=== PATIENT | male | born 1975 | race Caucasian/White ===

== ENCOUNTER → 2022-12-18 23:32 | Outpatient (CLI) | payer OTHER, SELFPAY ==
[2022-12-18 19:34] LABS: Chloride 91 mmol/L (98-107); Potassium 4.2 mmoL/L (3.5-5.1); Sodium 131 mmol/L (136-145)
[2022-12-18 19:36] LABS: Alanine Aminotransferase 27 U/L (12-78); Alkaline Phosphatase 96 U/L (38-126); Aspartate Amino Transferase 27 U/L (17-59); Bilirubin,Total 0.4 mg/dl (0.2-1.3); Blood Urea Nitrogen 27 mg/dl (9-20); Estimated Glomerular Filt Rate 65 ml/min (>60); GFR (African American) 79 ML/MIN (>60)
[2022-12-18 19:37] LABS: Albumin Level 4.5 g/dl (3.5-5.0); Albumin/Globulin Ratio 1.2 (1.1-1.8); Anion Gap 13.2 mEq/L (5-15); Calcium 9.7 mg/dl (8.4-10.2); Carbon Dioxide 31 mmol/L (22.0-30.0); Globulin 3.8 g/dL (1.3-3.2); Glucose 389 mg/dl (74-100); Total Protein,Serum 8.3 g/dl (6.3-8.2)
== END ==
PROVIDERS: PCP Nurse Practitioner; Visit Provider Nurse Practitioner
DX: E11.9 Type 2 diabetes mellitus without complications (principal); E78.5 Hyperlipidemia, unspecified; I10 Essential (primary) hypertension; Z79.84 Long term (current) use of oral hypoglycemic drugs
CPT/HCPCS: 80053

== ENCOUNTER → 2023-01-09 15:54 | Outpatient (CLI) | payer OTHER, SELFPAY ==
--- NOTE | 2023-01-09 15:55 | CA_ITS ---
APPROVED REPORT EXAM: Comprehensive 2D, Doppler, and color-flow Echocardiogram Banking Attorney: DASH Neal, RVS Ht: 5 ft 11 in Wt: 227lbs BSA: 2.23 BP: 150/78 mmHg Indications: CP, CAD-stents, HTN, HLD, DM, Edema, 2D Dimensions IVSd 0.95 cm LVEF (Visual) 49.20 % PWd 0.95 cm LA Volume 23.50 mL LVDd 5.01 cm LA Volume Index 10.30 mL/m2 (M/F) 16-34 LVDs 3.76 cm Aortic Root 2.64 cm Left Atrium 2.73 cm LVOT 1.89 cm (M/F) 1.5-2.5 M-Mode Dimensions LA Diam 2.76 cm (1.9-4.0) Ao Diam 3.26 cm (2.0-3.7) EPSs 0.84 cm TAPSE 2.10 (<1.7) LV Diastology E Decel Time 200.00 (160-240 msec) E/A Ratio 1.37 MED E' 8.70 (< 7 cm/sec) MED A' 11.80 cm/s E'/MED E' Ratio 7.20 (>14) LAT E' 10.50 (<10 cm/sec) LAT A' 11.20 cm/s E/LAT E' Ratio 5.96 (>14) Aortic Valve LVOT Max 107.00 (70-110 cm/s) LVOT VTI 21.22 cm AoV Peak Kenji. 140.00 (50-130 cm/s) AO Peak GR. 7.90 mmHg AO Mean GR. 4.20 (<5 mmHg) AO VTI 24.03 (18-25 cm) JAZ (VTI) 2.48 (2.5-4.5 cm2) Mitral Valve MV A Velocity 46.00 (40-130 cm/s) E/A Ratio 1.37 MV Decel. Time 200.00 (160-240 ms) Pulmonary Valve PV Peak Velocity 95.00 (50-150 cm/s) Tricuspid Valve TR P. Velocity 183.00 cm/s Left Ventricle Left atrium is mildly enlarged, left ventricle is normal size mild concentric left ventricular hypertrophy, estimated ejection fraction 55% with no regional wall motion abnormality, diastolic parameters are inconclusive. Right Ventricle Right atrium and right ventricle are normal size and contractility. Aortic Valve Aortic valve is minimally thickened and fibrosed there is no aortic stenosis or aortic insufficiency. Mitral Valve Mitral valve is grossly normal, there is trace mitral regurgitation. Tricuspid Valve Tricuspid grossly normal, there is trace tricuspid regurgitation, tricuspid regurgitation jet velocity is inadequate for calculation of the right ventricular systolic pressure. Pulmonic Valve Pulmonic valve is poorly visualized. Great Vessels Aortic root is normal size. Pericardium No significant pericardial effusion noted. Inferior vena cava is poorly visualized. Conclusion 1. Mildly enlarged left atrium, normal left ventricular size mild concentric left ventricular hypertrophy, estimated ejection fraction 55% with no regional wall motion abnormality, diastolic parameters are inconclusive. 2. Trace mitral and tricuspid regurgitation. 3. No significant pericardial effusion noted. 4. Inferior vena cava is poorly visualized. Electronically signed by : Pablo Higginbotham MD 01/09/2023 19:25:44
== END ==
PROVIDERS: PCP Nurse Practitioner; Visit Provider Physician Assistant
DX: R06.00 Dyspnea, unspecified (principal); R07.89 Other chest pain; I20.0 Unstable angina; E11.9 Type 2 diabetes mellitus without complications; E78.1 Pure hyperglyceridemia; E78.5 Hyperlipidemia, unspecified; I10 Essential (primary) hypertension; R60.9 Edema, unspecified; Z95.5 Presence of coronary angioplasty implant and graft; Z79.84 Long term (current) use of oral hypoglycemic drugs
CPT/HCPCS: 93306

== ENCOUNTER 2023-01-18 08:32 | Day surgery (SDC) | payer OTHER, SELFPAY ==
[2023-01-18] VITALS (12 sets, daily range): BP systolic 80–137; BP diastolic 47–106; PULSE 82–103; RESP 16–18; O2SAT 90–97; BMI 31.6
--- NOTE | 2023-01-18 07:09 | IR_ITS ---
APPROVED REPORT Patient Location: Outpatient Director Environmental: EREN Cordero RT (R) PROCEDURES Left heart catheterization Left ventriculogram Selective coronary angiogram Bilateral selective renal angiography INDICATION Coronary artery disease, Accelerated angina pectoris, Hypertension, Renal failure creatinine 1.5, Suspected renal artery stenosis, Suspect renovascular hypertension Informed consent was obtained prior to the procedure. COMPLICATIONS None Estimated Blood Loss: Less than 10 mls TECHNIQUE One percent lidocaine was used to anesthetize the right groin. The right femoral artery was accessed via the Seldinger technique. A 4-Armenian sheath was placed in the right femoral artery. The JL-4 and JR-4 catheter was also used to perform left heart catheterization left ventriculogram and selective coronary angiogram. At the end of the procedure the patient was transferred to the post-op holding area in stable condition for arterial sheath removal. ANGIOGRAPHIC RESULTS The left main artery Has ostial proximal 20% stenosis and a distal eccentric 30% stenosis The left anterior descending artery Has an ostial 60% stenosis followed by a proximal 70% stenosis immediately proximal to an LAD stent which is widely patent. Distal to the stent is a 50% myocardial bridge followed by an additional stent in the midportion which is widely patent with 30% stenosis proximal to the stent The circumflex artery Is a dominant vessel and has an ostial hazy 70% stenosis with an additional 90% stenosis and a first and second obtuse marginal artery The right coronary artery Is a dominant vessel and has proximal 40% stenoses with mid vessel eccentric 50 and 70% stenoses. A large posterior lateral branch has a proximal 80% stenosis while the posterior descending artery is proximally occluded and fills via [id number] collateral The SINCLAIR ventriculogram reveals Normal 60% The left ventricular end-diastolic pressure 20 mmHg Right renal artery singular normal Left renal artery singular normal IMPRESSION Severe three-vessel coronary disease as described above Normal ejection fraction Elevated LVEDP Normal renal arteries PLAN 1. I recommend bypass surgery. Patient has both ostial and proximal LAD disease as well as ostial circumflex artery disease. I do not recommend stent in the ostial circumflex artery as this would require bifurcating stenting of the left main artery. I believe patient would do well with bypass surgery 2. LDL less than 55 to be achieved with high intensity statin or other drugs such as Praluent 3. Tight control of diabetes. Patient referred to Dr. Jeffers. I spoke with Dr. Jeffers and he has agreed to see patient at either 9 AM or 1 PM tomorrow 4. Referral to [facility] bypass surgery 5. Aggressive risk factor modification 6. Increase metoprolol from 50 twice daily to 100 mg twice daily 7. Increase metformin from 500 twice daily to 1000 twice daily Electronically signed by : Van Clemons MD 01/18/2023 16:20:44
[2023-01-18 09:18] LABS: Chloride 84 mmol/L (98-107); Potassium 4.1 mmoL/L (3.5-5.1); Sodium 127 mmol/L (136-145)
[2023-01-18 09:20] LABS: Basophils # 0.2 K/mm3 (0-0.2); Basophils % 1.6 % (0.1-2.0); Blood Urea Nitrogen 32 mg/dl (9-20); Eosinophils # 0.1 K/mm3 (0.0-0.4); Eosinophils % 1.4 % (0.1-12.0); Hematocrit 51.3 % (42.0-52.0); Hemoglobin 17.2 g/dL (14.1-18.0); Lymphocytes # 2.5 K/mm3 (0.7-4.5); Lymphocytes % 25.9 % (10-50); Mean Corpuscular HGB Conc 33.6 g/dL (31.8-35.4); Mean Corpuscular Hemoglobin 28.9 pg (27.0-31.2); Mean Corpuscular Volume 86.1 fl (80-94); Mean Platelet Volume 8.7 fl (7.4-10.4); Monocytes # 0.6 K/mm3 (0.1-1.0); Monocytes % 6.5 % (1.7-9.3); Neutrophils # 6.2 K/mm3 (1.8-7.8); Neutrophils % 64.6 % (37.0-80.0); Platelet Count 325 K/mm3 (142-424); Red Blood Count 5.95 M/mm3 (4.60-6.20); Red Cell Distribution Width 13.9 % (11.5-17.5); White Blood Count 9.6 K/mm3 (4.8-10.8)
[2023-01-18 09:21] LABS: Anion Gap 20.1 mEq/L (5-15); Calcium 10.2 mg/dl (8.4-10.2); Carbon Dioxide 27 mmol/L (22.0-30.0); Creatinine Clearance Estimated 88 mL/min (50-200); Estimated Glomerular Filt Rate 50 ml/min (>60); GFR (African American) 60 ML/MIN (>60)
[2023-01-18 09:29] LABS: Glucose 437 mg/dl (74-100)
[2023-01-18 15:36] LABS: POC Glucose,Bedside 431 (70-110)
[2023-01-18 15:36] LABS: POC Glucose,Bedside 472 (70-110)
[2023-01-18 15:36] LABS: POC Glucose,Bedside 451 (70-110)
== END 2023-01-18 16:20 | disposition home or self-care (01) ==
PROVIDERS: PCP Nurse Practitioner; Visit Provider Internal Medicine
DX: I25.110 Atherosclerotic heart disease of native coronary artery with unstable angina pectoris (principal); E11.65 Type 2 diabetes mellitus with hyperglycemia; E78.1 Pure hyperglyceridemia; E78.5 Hyperlipidemia, unspecified; I10 Essential (primary) hypertension; R06.00 Dyspnea, unspecified; R07.89 Other chest pain; R60.9 Edema, unspecified; Z95.5 Presence of coronary angioplasty implant and graft; Z87.891 Personal history of nicotine dependence; Z79.84 Long term (current) use of oral hypoglycemic drugs; Z79.899 Other long term (current) drug therapy; I15.0 Renovascular hypertension; I70.1 Atherosclerosis of renal artery
CPT/HCPCS: 36252; 80048; 82962; 85025; 93458; 99152; C1725; C1769; J1644; Q9967

== ENCOUNTER → 2023-01-22 14:56 | Outpatient (CLI) | payer OTHER, SELFPAY ==
[2023-01-22 16:25] LABS: Basophils # 0.1 K/mm3 (0-0.2); Basophils % 1.1 % (0.1-2.0); Eosinophils # 0.1 K/mm3 (0.0-0.4); Eosinophils % 0.7 % (0.1-12.0); Hematocrit 50.5 % (42.0-52.0); Hemoglobin 16.8 g/dL (14.1-18.0); Lymphocytes # 2.2 K/mm3 (0.7-4.5); Mean Corpuscular HGB Conc 33.3 g/dL (31.8-35.4); Mean Corpuscular Hemoglobin 28.7 pg (27.0-31.2); Mean Corpuscular Volume 86.2 fl (80-94); Mean Platelet Volume 9.4 fl (7.4-10.4); Monocytes # 0.6 K/mm3 (0.1-1.0); Monocytes % 5.2 % (1.7-9.3); Neutrophils # 9.1 K/mm3 (1.8-7.8); Neutrophils % 75.1 % (37.0-80.0); Platelet Count 303 K/mm3 (142-424); Red Blood Count 5.85 M/mm3 (4.60-6.20); Red Cell Distribution Width 13.6 % (11.5-17.5); White Blood Count 12.1 K/mm3 (4.8-10.8)
[2023-01-22 17:28] LABS: Anion Gap 22.8 mEq/L (5-15); Blood Urea Nitrogen 42 mg/dl (9-20); Calcium 9.8 mg/dl (8.4-10.2); Carbon Dioxide 26 mmol/L (22.0-30.0); Chloride 84 mmol/L (98-107); Estimated Glomerular Filt Rate 46 ml/min (>60); GFR (African American) 56 ML/MIN (>60); Glucose 294 mg/dl (74-100); Magnesium 2.2 mg/dl (1.6-2.3); Potassium 4.8 mmoL/L (3.5-5.1); Sodium 128 mmol/L (136-145)
== END ==
PROVIDERS: PCP Nurse Practitioner; Visit Provider Physician Assistant
DX: I10 Essential (primary) hypertension (principal); E78.5 Hyperlipidemia, unspecified
CPT/HCPCS: 36415; 80048; 83735; 85025

== ENCOUNTER → 2023-05-17 10:51 | Outpatient (CLI) | payer OTHER, SELFPAY | PROVIDERS: Visit Provider Internal Medicine | DX: I20.8 Other forms of angina pectoris (principal); R00.0 Tachycardia, unspecified; R00.2 Palpitations; I10 Essential (primary) hypertension; E11.9 Type 2 diabetes mellitus without complications; E78.5 Hyperlipidemia, unspecified; R60.9 Edema, unspecified; Z95.1 Presence of aortocoronary bypass graft; Z95.5 Presence of coronary angioplasty implant and graft; Z79.4 Long term (current) use of insulin | CPT/HCPCS: 93270 ==

== ENCOUNTER → 2023-06-06 07:49 | Outpatient (CLI) | payer OTHER, SELFPAY ==
--- NOTE | 2023-06-06 07:49 | NM_ITS ---
APPROVED REPORT Exam: Nuclear Stress Test Indication: palpitations..a-fib Patient Location: Outpatient Stress Tech: Barbara Thomas LA Tech:Radha McculloughEREN RT(R)(N) Ht: 5 ft 11 in Wt: 215 lbs HR: 84 bpm BP: 116/84 mmHg BSA: 2.17 m2 Rhythm: NSR TID: 1.37 BMI: 29.9 History: palpitations..a-fib Procedure: Patient received 0.4 mg of intravenous Lexiscan, resting heart rate 84 bpm, resting blood pressure 116/84 mmHg, with Lexiscan maximum heart rate achieved was 112 bpm which is 85 % of the maximum predicted heart rate and blood pressure was 144/88 mmHg. With Lexiscan, patient denied any complaint of chest pain. The pt was not able to lay on his abdomen for prone images Cardiac Stress and Resting SPECT Images: Cardiac Stress and Resting SPECT images were obtained using technetium 99m Myoview 30.5 mCi stress and 10.27 mCi at rest. The patient could not lie on his abdomen. Therefore, prone stress imaging could not be obtained. This may affect the diagnostic interpretation of the study findings. Resting and stress imaging in supine position demonstrates a large-sized, moderate, reversible perfusion defect in the anterior, anterolateral, and lateral LV lopez. There is also a large-sized, moderate, partially reversible perfusion defect in the inferior wall, reversibility is noted in the mid to distal segment. There is also increased transient ischemic dilatation ratio (TID 1.37), suggestive of possible multivessel disease or balanced ischemia. Gated imaging demonstrates mild reduction in global LV systolic function. There is moderate hypokinesis in the anterior, anterolateral, and inferior LV lopez. LVEF is calculated at 43%. Conclusion: The patient could not lie on his abdomen. Therefore, prone stress imaging could not be obtained. This may affect the diagnostic interpretation of the study findings. 1) Large-sized, moderate, reversible perfusion defect in the anterior, anterolateral, and lateral LV lopez. 2) Large-sized, moderate, partially reversible perfusion defect in the inferior wall. Reversibility is noted in the mid to distal segment. There is also increased transient ischemic dilatation ratio (TID 1.37), suggestive of possible multivessel disease or balanced ischemia. Gated imaging demonstrates mild reduction in global LV systolic function. There is moderate hypokinesis in the anterior, anterolateral, and inferior LV lopez. LVEF is calculated at 43%. Electronically signed by : Merced Ashton, 06/09/2023 15:18:54
--- NOTE | 2023-06-06 09:36 | CA_ITS ---
APPROVED REPORT EXAM: Comprehensive 2D, Doppler, and color-flow Echocardiogram Vacuum Worker: Erika Galarza RVT Ht: 6 ft 0 in Wt: 214lbs BSA: 2.19 BP: 124/86 mmHg Indications: EDEMA,CAD,CABG(03/13),HTN,PALPS,EX SMOKER,DM,HLD 2D Dimensions LVOT 2.09 cm (M/F) 1.5-2.5 LA Volume 33.60 mL LA Volume Index 15.34 mL/m2 (M/F) 16-34 M-Mode Dimensions RVDd 2.00 cm (0.9-2.6) LA Diam 3.37 cm (1.9-4.0) LVDd 5.35 cm (3.5-5.7) Ao Diam 3.09 cm (2.0-3.7) LVDs 3.67 cm (3.5-5.7) IVSd 0.43 cm (0.6-1.1) PWd 0.64 cm (0.6-1.1) EF (Teich) 58.80% FS 31.40% EDV (Teich) 138.30 mL TAPSE 1.36 (<1.7) ESV (Teich) 57.00 mL LV Diastology E Decel Time 163.00 (160-240 msec) E/A Ratio 1.3 MED E' 5.70 (< 7 cm/sec) E'/MED E' Ratio 13.11 (>14) LAT E' 14.50 (<10 cm/sec) E/LAT E' Ratio 5.15 (>14) Aortic Valve AO Peak GR. 3.40 mmHg Mitral Valve MV E Max Kenji. 75.00 (40-130 cm/s) MV A Velocity 60.00 (40-130 cm/s) E/A Ratio 1.24 MV Decel. Time 163.00 (160-240 ms) MV PHT 48.00 ms Pulmonary Valve PV Peak Velocity 87.00 (50-150 cm/s) Tricuspid Valve TR P. Velocity 197.00 cm/s RAP Estimate 10.00 mmHg RVSP 25.50 mmHg Left Ventricle The left ventricle is normal size. The left ventricular systolic function is normal. The left ventricular ejection fraction is within the low normal range. There is normal left ventricular wall thickness. There is normal LV segmental wall motion. There is mild hypokinesis of the mid to distal septal and anteroseptal LV lopez. The left ventricular diastolic function is normal. LVEF is 50%. Right Ventricle The right ventricle is normal size. The right ventricular systolic function is normal. Atria The left atrium size is normal. The right atrium size is normal. Aortic Valve The aortic valve opens well. There is no aortic valvular stenosis. No aortic regurgitation is present. Mitral Valve The mitral valve is normal in structure. No evidence of mitral valve stenosis. Mild mitral regurgitation. Tricuspid Valve The tricuspid valve leaflets are thin and pliable. Trace tricuspid regurgitation. RVSP is normal. Pulmonic Valve The pulmonary valve is normal in structure. Trace pulmonic regurgitation. Great Vessels The aortic root is normal in size. The ascending aorta is normal in size. IVC is normal in size and collapses >50% with inspiration. Pericardium There is no pericardial effusion. Other Information Study Quality: Adequate Conclusion Low-normal LV systolic function. Normal RV size and function. Hypokinesis of the mid to distal septal and anteroseptal LV lopez. No significant valvular disease. Electronically signed by : Merced Ashton, 06/06/2023 13:40:44
--- NOTE | 2023-06-06 10:27 | CA_ITS ---
APPROVED REPORT Exam: Pharmacologic Technologist: Barbara Thomas Ht: 6 ft 0 in Wt: 214 lbs BSA: 2.19 m2 HR: 83 bpm BP: 116/84 mmHg Rhythm: NSR Indications: Edema, Abnormal EKG Medical History Medications: Isosorbide,,,,, Aspirin,,,,, Metformin,,,,, Losartan,,,,, Allopurinol,,,,, Atorvastatin,,,,, Farxiga,,,,, Diclofenac,,,,, BisOPROLOL,,,,, LanTUS,,,,, Humalog,,,,, Methocarbamol,,,,, Stress Test Details Test: LEXISCAN HR Resting HR: 84 bpm Max Heart Rate (APMHR): 172 bpm Max HR Achieved: 112 bpm Target HR (85% APMHR): 146 bpm % of APMHR: 65 Recovery HR: 97 bpm BP Resting BP: 116.0/84.0 mmHg Max BP: 144.0/88.0 mmHg Recovery BP: 129.0/82.0 mmHg ECG Resting ECG: Normal sinus rhythm, LPFB, cannot rule out old inferolateral VT. Stress ECG: No change Arrhythmia: None Clinical Exercise duration: 04:00 min Highest Stage Achieved: Stress ECG Conclusion Symptoms: Mild chest pressure, shortness of air, mild head discomfort. Arrhythmias/Ectopy: None ST-T Changes: No significant ST changes. Conclusion: Unremarkable Lexiscan stress test. Myoview images reported separately. Test Summary REST . . . . . . . Resting REST 03:52 . . 84 . 116/ 84 . . Stage 1 . . . . . . . Myoview Injected Stage 1 01:00 . . 108 . . . . Stage 2 01:00 . . 106 . 133/ 80 . . Stage 3 01:00 . . 101 . 131/ 85 . . Stage 4 01:00 . . 102 . 124/ 80 . Stop exercise at 04:00 RECOVERY 01:00 . . 97 . . . . RECOVERY 02:00 . . 100 . 144/ 88 . . RECOVERY 03:00 . . 96 . 129/ 82 . . RECOVERY 03:18 . . 99 . 129/ 82 . . Electronically signed by : Merced Ashton, 06/09/2023 15:13:35
== END ==
LOC: RAD 07:49
PROVIDERS: Visit Provider Internal Medicine
DX: I20.8 Other forms of angina pectoris (principal); R00.0 Tachycardia, unspecified; R00.2 Palpitations; I10 Essential (primary) hypertension; R60.9 Edema, unspecified; E78.5 Hyperlipidemia, unspecified; E11.9 Type 2 diabetes mellitus without complications; Z79.4 Long term (current) use of insulin; Z95.1 Presence of aortocoronary bypass graft; Z95.5 Presence of coronary angioplasty implant and graft
CPT/HCPCS: 78452; 93017; 93306; A9502; J2785

== ENCOUNTER 2023-06-21 16:05 | Observation (INO) | payer OTHER, SELFPAY ==
[2023-06-21] VITALS (12 sets, daily range): BP systolic 97–156; BP diastolic 55–94; PULSE 70–94; RESP 16–20; O2SAT 98–100; BMI 29.5; BMI 30.6
--- NOTE | 2023-06-21 15:52 | IR_ITS ---
APPROVED REPORT Patient Location: Emergent Pharmacy Buyer: EREN Cordero RT (R) PROCEDURES Selective coronary angiogram Left heart catheterization Left ventriculogram Selective engagement of left internal mammary artery to the LAD Selective engagement of the radial artery to the circumflex artery Drug-eluting stent deployment to the first obtuse marginal artery extending into the inferior branch of the bifurcating obtuse marginal artery Drug-eluting stent deployment to the proximal circumflex artery Drug-eluting stent deployment to the ostial proximal mid distal left main artery extending into the circumflex artery Intravascular ultrasound to the left main artery and circumflex artery INDICATION Coronary artery disease, Unstable angina, History of coronary bypass surgery, Intrapleural loss of radial artery supplying the circumflex artery Informed consent was obtained prior to the procedure. COMPLICATIONS None Estimated Blood Loss: Less than 10 mls TECHNIQUE One percent lidocaine used to anesthetize the right groin. The right femoral artery was accessed via the Seldinger technique and a 5 Guatemalan sheath was placed in the right femoral artery. A JL 4, JR4 catheter were used to perform left heart catheterization, left ventriculogram selective coronary angiography as well as selective engagement of the radial artery supplying the circumflex artery and the left internal mammary artery supplying the LAD. At the end of the diagnostic angiogram therapeutic heparin was administered giving a therapeutic ACT and the 5 Guatemalan sheath was exchanged for a 6 Guatemalan sheath. A JL 4 guide catheter was placed in the left main artery followed by Choice PT extra-support wire being placed into the circumflex artery and the second obtuse marginal artery. A guide liner was advanced and a 3.5 x 22 mm Wiggins frontier stent was placed in the distal left main artery extending the proximal circumflex artery 20 marilu. A 2 mm x 12 mm balloon was used to predilate the stenosis extending into the circumflex artery. Following this a 2.25 x 18 mm Paul frontier stent was placed in the ostial segment of the first obtuse marginal artery extending into the second obtuse marginal artery and deployed at 14 marilu. Excellent angiographic results were obtained. Following this intravascular ultrasound probe was advanced which demonstrated the stent in the circumflex artery was nicely expanded with excellent transition into the body of the circumflex artery. It did demonstrate that the left main artery was under size therefore a 4.5 x 12 mm noncompliant balloon was deployed at 20 marilu in the left main artery. An additional 4.5 x 12 mm Paul frontier stent was then placed in the ostial segment and deployed at 20 marilu. There were excellent angiographic results with JOCELYNN-3 flow extending into the left main artery and circumflex artery before and at the end of the procedure. At the end the procedure the apparatus was removed the groin is reprepped closure change sheath was removed and hemostasis was achieved using Perclose device patient was transferred to the postop holding in stable condition ANGIOGRAPHIC RESULTS The left main artery Had a distal 50% stenosis The left anterior descending artery Has a proximal 6070% calcified stenosis with a mid vessel calcified 60 to 70% stenosis with competitive flow from the DANIELS to the LAD and mid vessel. The circumflex artery Is a large vessel and has an ostial proximal 80 to 90% stenosis. The first obtuse marginal artery bifurcates. Just prior to the bifurcation is a 90% stenosis which extends into the superior and inferior branch of this obtuse marginal artery. The right coronary artery Is a dominant vessel and has proximal 50% stenosis 40% mid vessel stenosis and additional ec
[2023-06-21 16:36] LABS: Chloride 97 mmol/L (98-107); Potassium 4.1 mmoL/L (3.5-5.1); Sodium 139 mmol/L (136-145)
[2023-06-21 16:39] LABS: Blood Urea Nitrogen 16 mg/dl (9-20); Creatinine Clearance Estimated 89 mL/min (50-200); Estimated Glomerular Filt Rate 59 ml/min (>60); GFR (African American) 71 ML/MIN (>60)
[2023-06-21 16:40] LABS: Anion Gap 14.1 mEq/L (5-15); Calcium 10.2 mg/dl (8.4-10.2); Carbon Dioxide 32 mmol/L (22.0-30.0); Glucose 169 mg/dl (74-100)
[2023-06-21 16:56] LABS: Basophils # 0.1 K/mm3 (0-0.2); Basophils % 0.6 % (0.1-2.0); Eosinophils # 0.1 K/mm3 (0.0-0.4); Eosinophils % 0.7 % (0.1-12.0); Hematocrit 48.7 % (42.0-52.0); Lymphocytes # 2.4 K/mm3 (0.7-4.5); Lymphocytes % 25.6 % (10-50); Mean Corpuscular Volume 75.8 fl (80-94); Mean Platelet Volume 8.5 fl (7.4-10.4); Monocytes # 0.7 K/mm3 (0.1-1.0); Monocytes % 7.3 % (1.7-9.3); Neutrophils # 6.2 K/mm3 (1.8-7.8); Neutrophils % 65.8 % (37.0-80.0); Platelet Count 316 K/mm3 (142-424); Red Blood Count 6.42 M/mm3 (4.60-6.20); Red Cell Distribution Width 16.7 % (11.5-17.5); White Blood Count 9.3 K/mm3 (4.8-10.8)
[2023-06-21 17:43] LABS: CATHL Activated Clotting Time 312 SEC (74-125)
--- NOTE | 2023-06-21 18:34 | PC.NURSE ---
A&OX4. PT HAS SLEPT SINCE ARRIVAL TO FLOOR. NO C/O. R FEMORAL CATH SITE CDI. VSS.
--- NOTE | 2023-06-21 20:36 | ECG_ITS ---
APPROVED REPORT Exam: Resting ECG HR:86 bpm ECG Measurements Heart Rate 86 AXES [place] 162 P 50 QRSd 102 QRS 73 QT 392 T 81 QTc 436 Conclusion SINUS RHYTHM NORMAL ECG UNCONFIRMED REPORT Electronically signed by : Palomo Barnett MD 06/25/2023 15:59:22
[2023-06-22] VITALS: BP 121/69; PULSE 88; PULSE 90; RESP 18; TEMP 36.8; O2SAT 100
--- NOTE | 2023-06-22 03:46 | EXP.HP ---
History of Present Illness *Admission Date: 06/21/23 *Reason for visit:: chest pain *History of present illness: Mr. Paez is a 48 year old male witha past medical history of CAD s/p CABG on 02/23/23 s/p ANTONELLA placements on DAPT with aspirin and plavix, uncontrolled type 2 diabetes mellitus. The patient had perfusion imaging which revealed a reversible perfusion defect in the anterior, anterolateral and lateral LV lopez; and a partially reversible perfusion defect in the inferior wall. He had a left heart catheterization with successful stenting of the ostial proximal mid left main artery extending into the circumflex artery with 2 contiguous drug-eluting stents; successful stenting of the first obtuse marginal artery. The patient is lethargic after his procedure and has no complaints. Currently he doesn't have any chest pain. [facility] Disclaimer: The information contained in this section may have been updated after the patient was seen, as this information can be updated by other users. Medical History Angina at rest ASCVD (arteriosclerotic cardiovascular disease) History of ASCVD Hyperlipidemia Hypertriglyceridemia Palpitations Primary hypertension Type 2 diabetes mellitus without complication Surgical History History of heart artery stent (~04/26/22) History of heart artery stent Social History (Updated 06/21/23 @ 16:22 by Jw Mejia RN) Smoking Status: Former smoker alcohol intake: never substance use type: denies use current occupational status: employed (self-employed) Travel in the last 8 weeks: Inside the [place] Review of Systems Review of Systems Review of systems:: pertinent systems reviewed and negative unless documented below Meds Home Medications and Allergies Home Medications Medication Instructions Recorded Confirmed Type aspirin 81 mg chewable tablet 1 tab PO DAILY Heart Health 03/05/23 06/21/23 History atorvastatin 80 mg tablet 80 mg PO DAILY Cholesterol 03/05/23 06/21/23 History diclofenac sodium 1 % topical gel 2 g topical DAILY PRN Pain 03/05/23 06/21/23 History docusate sodium 100 mg tablet 100 mg PO DAILYP PRN Constipation 03/05/23 06/21/23 History (Stool Softener) pen needle, diabetic 31 gauge x #100 ea 03/12/23 06/21/23 Rx 5/16 (Sure-Fine Pen [place]) bisoprolol fumarate 10 mg tablet 10 mg PO DAILY High Blood Pressure 06/21/23 06/21/23 History dapagliflozin propanediol 10 mg 10 mg PO DAILY Diabetes 06/21/23 06/21/23 History tablet (Farxiga) furosemide 40 mg tablet (Lasix) 40 mg PO DAILY Fluid 06/21/23 06/21/23 History insulin glargine 100 unit/mL (3 28 unit SQ AM Diabetes 06/21/23 06/21/23 History mL) subcutaneous pen (Lantus Solostar U-100 Insulin) insulin lispro protamine-lispro 20 unit SQ BIDWMEAL Diabetes 06/21/23 06/21/23 History 100 unit/mL (75-25) subcutaneous pen (Humalog Mix 75-25 KwikPen) isosorbide mononitrate 30 mg 30 mg PO DAILY High Blood Pressure 06/21/23 06/21/23 History tablet,extended release 24 hr losartan 100 mg tablet 100 mg PO DAILY High Blood Pressure 06/21/23 06/21/23 History metformin 1,000 mg tablet 1,000 mg PO BID Diabetes 06/21/23 06/21/23 History pantoprazole 40 mg tablet,delayed 40 mg PO AM Acid Reflux 06/21/23 06/21/23 History release semaglutide 1 mg/dose (4 mg/3 mL) 1 mg SQ WEEKLY Diabetes 06/21/23 06/21/23 History subcutaneous pen injector (Ozempic) spironolactone 50 mg tablet 50 mg PO DAILY Fluid 06/21/23 06/21/23 History New Prescriptions to Start Prescriptions: Allergies Allergy/AdvReac Type Severity Reaction Status Date / Time Penicillins AdvReac Severe Verified 06/21/23 16:15 Exam Data for Last 24 hours Vital signs and Labs for Last 24 Hours: Temp Pulse Resp BP Pulse Ox O2 Del Method 98.3 F 88 18 121/69 100 Room Air 06/22/23 00:00 06/22/23 00:00 06/22/23 00:00
[2023-06-22 04:00] VITALS: BP 110/65; PULSE 70; PULSE 84; RESP 18; TEMP 36.7; O2SAT 96; BMI 30.7
[2023-06-22 05:32] LABS: POC Glucose,Bedside 153 (70-110)
[2023-06-22 06:55] LABS: Basophils # 0.1 K/mm3 (0-0.2); Basophils % 0.9 % (0.1-2.0); Eosinophils # 0.1 K/mm3 (0.0-0.4); Eosinophils % 0.9 % (0.1-12.0); Hematocrit 45.5 % (42.0-52.0); Lymphocytes # 2.7 K/mm3 (0.7-4.5); Mean Corpuscular HGB Conc 32.9 g/dL (31.8-35.4); Mean Corpuscular Volume 75.8 fl (80-94); Mean Platelet Volume 8.4 fl (7.4-10.4); Monocytes # 0.6 K/mm3 (0.1-1.0); Monocytes % 7.4 % (1.7-9.3); Neutrophils # 4.3 K/mm3 (1.8-7.8); Neutrophils % 55.8 % (37.0-80.0); Platelet Count 271 K/mm3 (142-424); Red Blood Count 6.01 M/mm3 (4.60-6.20); Red Cell Distribution Width 16.9 % (11.5-17.5); White Blood Count 7.6 K/mm3 (4.8-10.8)
[2023-06-22 07:09] LABS: Anion Gap 13.3 mEq/L (5-15); Blood Urea Nitrogen 18 mg/dl (9-20); Calcium 9.5 mg/dl (8.4-10.2); Carbon Dioxide 29 mmol/L (22.0-30.0); Chloride 100 mmol/L (98-107); Creatinine Clearance Estimated 106 mL/min (50-200); Estimated Glomerular Filt Rate 65 ml/min (>60); GFR (African American) 78 ML/MIN (>60); Glucose 157 mg/dl (74-100); Potassium 4.3 mmoL/L (3.5-5.1); Sodium 138 mmol/L (136-145)
[2023-06-22 08:00] VITALS: BP 126/67; PULSE 88; RESP 18; TEMP 36.6; O2SAT 99
--- NOTE | 2023-06-22 08:30 | HMH.PHAINT1 ---
Pharmacy Intervention Comments: home medication list verified using list from outpatient pharmacy, cardiology office and pt interview
--- NOTE | 2023-06-22 09:43 | EXP.CARD.PN ---
Subjective Subjective Date: 06/22/23 Time: 09:43 Principal diagnosis: Unstable angina Interval history: 48-year-old male with recent history of bypass surgery seen in the office yesterday for recurrent unstable angina, subsequently admitted and underwent cardiac catheterization with placement of 3 drug-eluting stents to the left main/circumflex/OM arteries with resolution of pain. Patient is anxious to go home today. He has remaining RCA disease which will be treated medically at this time. Exam Data for Last 24 hours Vital signs and Labs for Last 24 Hours: Temp Pulse Resp BP Pulse Ox O2 Del Method 97.8 F 88 18 126/67 99 Room Air 06/22/23 08:00 06/22/23 08:00 06/22/23 08:00 06/22/23 08:00 06/22/23 08:00 06/22/23 08:00 Laboratory Results - last 24 hr 06/21/23 16:18: WBC 9.3, RBC 6.42 H, Hgb 16.0, Hct 48.7, MCV 75.8 L, MCH 25.0 L, MCHC 33.0, RDW 16.7, Plt Count 316, MPV 8.5, Neut % (Auto) 65.8, Lymph % (Auto) 25.6, Ware % (Auto) 7.3, Eos % (Auto) 0.7, Baso % (Auto) 0.6, Neut # (Auto) 6.2, Lymph # (Auto) 2.4, Ware # (Auto) 0.7, Eos # (Auto) 0.1, Baso # (Auto) 0.1, Sodium 139, Potassium 4.1, Chloride 97 L, Carbon Dioxide 32 H, Anion Gap 14.1, BUN 16, Creatinine 1.30 H, Estimated Creat Clear 89, Estimated GFR 59, Est GFR ( Amer) 71, Glucose 169 H, Calcium 10.2 06/21/23 17:13: Activated Clotting Time 312 H* 06/22/23 05:24: POC Glucose 153 H 06/22/23 06:29: WBC 7.6, RBC 6.01, Hgb 15.0, Hct 45.5, MCV 75.8 L, MCH 25.0 L, MCHC 32.9, RDW 16.9, Plt Count 271, MPV 8.4, Neut % (Auto) 55.8, Lymph % (Auto) 35.0, Ware % (Auto) 7.4, Eos % (Auto) 0.9, Baso % (Auto) 0.9, Neut # (Auto) 4.3, Lymph # (Auto) 2.7, Ware # (Auto) 0.6, Eos # (Auto) 0.1, Baso # (Auto) 0.1, Sodium 138, Potassium 4.3, Chloride 100, Carbon Dioxide 29, Anion Gap 13.3, BUN 18, Creatinine 1.20, Estimated Creat Clear 106, Estimated GFR 65, Est GFR ( Amer) 78, Glucose 157 H, Calcium 9.5 I & O for Last 24 hours: Intake & Output 06/19/23 06/20/23 06/21/23 06/22/23 11:59 11:59 11:59 11:59 Intake Total 490 / 490 Output Total 400 / 400 Balance 90 / 90 Weight 219 lb 8 oz Constitutional Constitutional: no acute distress *Routine Respiratory Exam Respiratory: Present CTA bilaterally *Routine Cardiovascular Exam Cardiovascular: Present RRR Progress Note: A&P Assessment and plan (1) Abnormal result of cardiovascular function study: Status: Acute (2) CAD (coronary artery disease): Status: Acute (3) Hyperlipidemia: Status: Chronic (4) Primary hypertension: Status: Chronic (5) Angina at rest: Status: Acute (6) Type 2 diabetes mellitus without complication: Status: Chronic Assessment and Plan Assessment and Plan for All Diagnoses:: 1. CAD -4 vessel CABG, 02/2023 -Recurrent angina with abnormal stress test, 05/2023 -Loss of radial graft to circumflex, 06/21/2023 with reconstruction utilizing 3 drug-eluting stents from left main into circumflex to OM. Angina symptoms resolved per patient remaining RCA disease relegated to medical therapy at this time. 2. Diabetes mellitus -Recent hemoglobin A1c 8.1 per patient (previously 11.4) -He does see endocrinology in [place], [place] 3. Hyperlipidemia -On statin therapy Stable for discharge home Home medication recommendations Aspirin 81 mg daily Effient 10 mg daily Bisoprolol 10 mg daily Farxiga 10 mg daily Lasix 40 mg as directed Isosorbide mononitrate 30 mg daily Pantoprazole 40 mg daily Spironolactone 50 mg as directed Adding atorvastatin 40 mg daily and entresto 24/26 mg BID (samples) Follow-up in our office next week
--- NOTE | 2023-06-22 09:45 | EXP.DC.SUM ---
General Admission date:: 06/21/23 Discharge date: 06/22/23 HPI HPI HPI: Mr. Paez is a 48 year old male witha past medical history of CAD s/p CABG on 02/23/23 s/p ANTONELLA placements on DAPT with aspirin and plavix, uncontrolled type 2 diabetes mellitus. The patient had perfusion imaging which revealed a reversible perfusion defect in the anterior, anterolateral and lateral LV lopez; and a partially reversible perfusion defect in the inferior wall. He had a left heart catheterization with successful stenting of the ostial proximal mid left main artery extending into the circumflex artery with 2 contiguous drug-eluting stents; successful stenting of the first obtuse marginal artery. The patient is lethargic after his procedure and has no complaints. Currently he doesn't have any chest pain. Hospital Course Hospital Course Hospital Course: The patient did not have chest pain throughout the hospital course. He will discharge with a new prescription of Effient. No changes were made to his home medications. He will need to follow up with his PCP in 1 week and with Cardiology in 1 week. Exam Data for Last 24 hours Vital signs and Labs for Last 24 Hours: Temp Pulse Resp BP Pulse Ox O2 Del Method 97.8 F 88 18 126/67 99 Room Air 06/22/23 08:00 06/22/23 08:00 06/22/23 08:00 06/22/23 08:00 06/22/23 08:00 06/22/23 08:00 Laboratory Results - last 24 hr 06/21/23 16:18: WBC 9.3, RBC 6.42 H, Hgb 16.0, Hct 48.7, MCV 75.8 L, MCH 25.0 L, MCHC 33.0, RDW 16.7, Plt Count 316, MPV 8.5, Neut % (Auto) 65.8, Lymph % (Auto) 25.6, Yancey % (Auto) 7.3, Eos % (Auto) 0.7, Baso % (Auto) 0.6, Neut # (Auto) 6.2, Lymph # (Auto) 2.4, Yancey # (Auto) 0.7, Eos # (Auto) 0.1, Baso # (Auto) 0.1, Sodium 139, Potassium 4.1, Chloride 97 L, Carbon Dioxide 32 H, Anion Gap 14.1, BUN 16, Creatinine 1.30 H, Estimated Creat Clear 89, Estimated GFR 59, Est GFR ( Amer) 71, Glucose 169 H, Calcium 10.2 06/21/23 17:13: Activated Clotting Time 312 H* 06/22/23 05:24: POC Glucose 153 H 06/22/23 06:29: WBC 7.6, RBC 6.01, Hgb 15.0, Hct 45.5, MCV 75.8 L, MCH 25.0 L, MCHC 32.9, RDW 16.9, Plt Count 271, MPV 8.4, Neut % (Auto) 55.8, Lymph % (Auto) 35.0, Yancey % (Auto) 7.4, Eos % (Auto) 0.9, Baso % (Auto) 0.9, Neut # (Auto) 4.3, Lymph # (Auto) 2.7, Yancey # (Auto) 0.6, Eos # (Auto) 0.1, Baso # (Auto) 0.1, Sodium 138, Potassium 4.3, Chloride 100, Carbon Dioxide 29, Anion Gap 13.3, BUN 18, Creatinine 1.20, Estimated Creat Clear 106, Estimated GFR 65, Est GFR ( Amer) 78, Glucose 157 H, Calcium 9.5 I & O for Last 24 hours: Intake & Output 06/19/23 06/20/23 06/21/23 06/22/23 23:59 23:59 23:59 23:59 Intake Total 490 / 490 Output Total 200 / 400 200 / 200 Balance -200 / -30 290 / 290 Weight 99.507 kg 99.564 kg Constitutional Constitutional: no acute distress *Routine HEENT Exam Head: Present normocephalic Eye: Present EOMI and PERRL ENT: Present mucous membranes moist *Routine Neck Exam Neck: Present supple; Absent lymphadenopathy *Routine Respiratory Exam Respiratory: Present CTA bilaterally *Routine Cardiovascular Exam Cardiovascular: Present RRR *Routine Abdominal Exam Abdominal: Present soft and normoactive bowel sounds; Absent tenderness *Routine Extremities Exam Extremities: Absent cyanosis, clubbing or edema *Routine Skin Exam Skin: Present warm; Absent rash *Routine Neurological Exam Neurological: Present alert and oriented X3 Results Data Completed and Pending Labs on day of discharge: Labs from last 24 hours 06/22/23 06/22/23 06/21/23 06:29 05:24 17:13 WBC 7.6 RBC 6.01 Hgb 15.0 Hct 45.5 MCV 75.8 L MCH 25.0 L MCHC 32.9 RDW 16.9 Plt Count 271 MPV 8.4 Neut % (Auto) 55.8 Lymph % (Auto) 35.0 Yancey % (Auto) 7.4 Eos % (Auto) 0.9 Baso % (Auto) 0.9 Neut # (Auto) 4.3 Lymph # (Auto) 2.7 Yancey # (Auto) 0.6 Eos # (Auto) 0.1 Baso # (Auto) 0.1 Activated Clotting Time 312 H* Sodiu
--- NOTE | 2023-06-22 10:19 | P.CONPHA_ITS ---
[facility] Community Affairs Director Discharge Med Health Type Technician: Mychal Paez JR has received discharge medication counseling on the following medications: -PRASUGREL (BLOOD THINNER, DAILY, BLEED/BRUISE RISK AND APPEARANCE VS LOCATION, BUMP HEAD = GO TO ER) -ASPIRIN (PREVIOUSLY TAKING, NO QUESTIONS) -BISOPROLOL (PREVIOUSLY TAKING, NO QUESTIONS) -ENTRESTO (FOR BLOOD PRESSURE, TWICE DAILY, WITH OR WITHOUT FOOD, DIZZINESS, LIGHTHEADEDNESS, COUGH, LOWER LIMB SWELLING POSSIBLE, CARDIOLOGY BRINGING SAMPLES) -ATORVASTATIN (FOR CHOLESTEROL, AT BEDTIME, MUSCLE PAIN/WEAKNESS POSSIBLE AND TALK TO MD IF THIS OCCURS). -HOLD METFORMIN UNTIL SUNDAY DUE TO CONTRAST DYE USAGE DURING CATH PROCEDURE TO PREVENT KIDNEY INJURY. PATIENT VERBALIZED NO QUESTIONS AT THIS TIME.
--- NOTE | 2023-06-25 12:48 | CARE MANAGER ---
Contacted patient related to hospital discharge. Patient is taking new medications and aware of follow up appointments. However, he is concerned about his blood pressure as the systolic has been in the 80s. He doesn't necessarily feel bad when this happens, just weak. We discussed contacting the cardiology office tomorrow morning 1st thing. He agrees. Denies any other questions or concerns. YVROSE Malik
== END 2023-06-22 11:04 | disposition home or self-care (01) ==
LOC: 2ND 16:06
PROVIDERS: Admitting Provider Internal Medicine; Referring Provider Internal Medicine; Visit Provider Internal Medicine
DX: R94.30 Abnormal result of cardiovascular function study, unspecified (principal); I25.810 Atherosclerosis of coronary artery bypass graft(s) without angina pectoris; E78.5 Hyperlipidemia, unspecified; I10 Essential (primary) hypertension; E11.9 Type 2 diabetes mellitus without complications; Z79.4 Long term (current) use of insulin; I25.110 Atherosclerotic heart disease of native coronary artery with unstable angina pectoris; Z95.1 Presence of aortocoronary bypass graft
CPT/HCPCS: 36415; 80048; 82962; 85025; 85347; 92928; 92978; 92979; 93005; 93459; 99152; 99153; C1725; C1760; C1769; C1876; C1894; C9600; G0378; J1644; Q9967

== ENCOUNTER → 2023-07-16 10:54 | Outpatient (CLI) | payer OTHER, SELFPAY ==
--- NOTE | 2023-07-16 11:12 | US_ITS ---
FINAL REPORT CLINICAL HISTORY: CLAUDICATION,REST PAIN,DM,HTN,CAD,EX SMOKER FINDINGS: ANKLE/BRACHIAL INDICES FINDINGS: Pressure indices are as follows: RIGHT LOWER EXTREMITY: Ankle brachial pressure index: 1.35 Comments: Within normal limits LEFT LOWER EXTREMITY: Ankle brachial pressure index: 1.12 Comments: Within normal limits IMPRESSION: No evidence of significant obstructive peripheral vascular disease of the lower extremities. Reviewed, Interpreted and Dictated by Seema Jones MD Transcribed by Fran Rodriguez Authenticated and . [facility]
== END ==
PROVIDERS: Visit Provider Nurse Practitioner Family
DX: I70.213 Atherosclerosis of native arteries of extremities with intermittent claudication, bilateral legs (principal); I20.8 Other forms of angina pectoris; R00.0 Tachycardia, unspecified; R00.2 Palpitations; I10 Essential (primary) hypertension; R60.9 Edema, unspecified; E11.9 Type 2 diabetes mellitus without complications; E78.5 Hyperlipidemia, unspecified; Z95.1 Presence of aortocoronary bypass graft; Z79.4 Long term (current) use of insulin
CPT/HCPCS: 93923

== ENCOUNTER 2023-09-11 13:06 | Emergency (ER) | payer OTHER, SELFPAY ==
[2023-09-11 13:07] VITALS: BP 169/104; PULSE 77; RESP 18; TEMP 37.2; O2SAT 99; BMI 28.7
--- NOTE | 2023-09-11 13:24 | XR_ITS ---
FINAL REPORT CLINICAL HISTORY: infected great toe, concern for osteomyelitis FINDINGS: Right foot Three views were obtained. There is no acute fracture or dislocation. There are mild and moderate degenerative changes, worst involving the 1st metatarsophalangeal. Hallux valgus deformity is identified. IMPRESSION: Degenerative changes as above. Reviewed, Interpreted and Dictated by Mychal Berry III, MD Transcribed by Una Pond Authenticated and [facility]
[2023-09-11 13:45] LABS: Basophils # 0.1 K/mm3 (0-0.2); Basophils % 0.7 % (0.1-2.0); Eosinophils # 0.1 K/mm3 (0.0-0.4); Eosinophils % 0.8 % (0.1-12.0); Hematocrit 48.3 % (42.0-52.0); Hemoglobin 16.1 g/dL (14.1-18.0); Lymphocytes # 2.4 K/mm3 (0.7-4.5); Lymphocytes % 25.1 % (10-50); Mean Corpuscular HGB Conc 33.3 g/dL (31.8-35.4); Mean Corpuscular Volume 83.9 fl (80-94); Mean Platelet Volume 9.1 fl (7.4-10.4); Monocytes # 0.6 K/mm3 (0.1-1.0); Monocytes % 5.8 % (1.7-9.3); Neutrophils # 6.4 K/mm3 (1.8-7.8); Neutrophils % 67.5 % (37.0-80.0); Platelet Count 300 K/mm3 (142-424); Red Blood Count 5.76 M/mm3 (4.60-6.20); Red Cell Distribution Width 16.1 % (11.5-17.5); White Blood Count 9.4 K/mm3 (4.8-10.8)
[2023-09-11 13:48] LABS: Chloride 92 mmol/L (98-107); Potassium 3.8 mmoL/L (3.5-5.1); Sodium 132 mmol/L (136-145)
[2023-09-11 13:50] LABS: Alanine Aminotransferase 32 U/L (12-78); Aspartate Amino Transferase 37 U/L (17-59); Blood Urea Nitrogen 19 mg/dl (9-20); Creatinine Clearance Estimated 95 mL/min (50-200); Estimated Glomerular Filt Rate 59 ml/min (>60); GFR (African American) 71 ML/MIN (>60)
[2023-09-11 13:51] LABS: Albumin Level 4.5 g/dl (3.5-5.0); Albumin/Globulin Ratio 1.3 (1.1-1.8); Alkaline Phosphatase 109 U/L (38-126); Anion Gap 14.8 mEq/L (5-15); Bilirubin,Total 0.4 mg/dl (0.2-1.3); Calcium 9.3 mg/dl (8.4-10.2); Carbon Dioxide 29 mmol/L (22.0-30.0); Globulin 3.5 g/dL (1.3-3.2); Glucose 292 mg/dl (74-100)
[2023-09-11 13:53] LABS: Lactic Acid 4.1 mmol/L (0.7-2.1)
--- NOTE | 2023-09-11 13:53 | PC.NURSE ---
MD aware of lactic of 4.1, states no bolus of fluids at this time due to pt heart failure.
[2023-09-11 13:57] LABS: C-Reactive Protein 6.2 mg/L (0-4)
[2023-09-11 14:30] VITALS: BP 119/63; PULSE 75; O2SAT 95
--- NOTE | 2023-09-11 14:39 | PC.NURSE ---
speaking with from pediatrist
--- NOTE | 2023-09-11 14:41 | PC.NURSE ---
DR ANDREW SPEAKING WITH PODIATRY
[2023-09-11 15:00] VITALS: BP 111/59; PULSE 71; O2SAT 95
--- NOTE | 2023-09-11 15:01 | PC.NURSE ---
CALLING [facility] FOR POSSIBLE TRANSFER
--- NOTE | 2023-09-11 15:03 | PC.NURSE ---
Wilda spoke with Catherine with [facility] and we are awaiting a call back
[2023-09-11 15:33] LABS: Hemoglobin A1C 9.5 % (4.0-6.0)
--- NOTE | 2023-09-11 15:44 | HMH.EDGENADL ---
Discharge Plan Disposition Patient Disposition: Home, Self-Care Condition: Good Prescriptions Prescriptions: New gentamicin 0.1 % cream 1 applic topical TID Qty: 30 0RF No Action aspirin 81 mg tablet,chewable 1 tab PO DAILY docusate sodium [Stool Softener] 100 mg tablet 100 mg PO DAILYP PRN (Reason: Constipation) diclofenac sodium 1 % gel 2 g topical DAILY PRN (Reason: Pain) spironolactone 50 mg tablet 50 mg PO DAILY Qty: 30 5RF bisoprolol fumarate 10 mg tablet 10 mg PO BID Qty: 60 5RF pantoprazole 40 mg tablet,delayed release (DR/EC) 40 mg PO AM Patient Comments: TAKE 1 TABLET BY MOUTH ONCE DAILY IN THE MORNING BEFORE BREAKFAST, DO NOT CHEW, CRUSH, OR SPLIT insulin lispro protamin-lispro [Humalog Mix 75-25 KwikPen] 100 unit/mL (75-25) insulin pen 20 unit SQ BIDWMEAL Patient Comments: INJECT 20 UNITS SUBCUTANEOUSLY TWICE DAILY WITH MEALS insulin glargine [Lantus Solostar U-100 Insulin] 100 unit/mL (3 mL) insulin pen 28 unit SQ AM Patient Comments: INJECT 28 UNITS SUBCUTANEOUSLY IN THE MORNING, WITH TITRATION IF INDICATED. MAX DAILY DOSE 50 UNITS Rx Instructions: Give 28U in the morning with sliding scale if indicated, max dose 50U Ozempic 1 mg/dose (4 mg/3 mL) pen injector 1 mg SQ WEEKLY Patient Comments: INJECT 1 MG SUBCUTANEOUSLY ONCE A WEEK furosemide [Lasix] 40 mg tablet 40 mg PO DAILY isosorbide mononitrate 30 mg tablet extended release 24 hr 30 mg PO DAILY metformin 1,000 mg tablet 1,000 mg PO BID Farxiga 10 mg tablet 10 mg PO DAILY Rx Instructions: RF Stg III prasugrel 10 mg Tablet 10 mg PO DAILY Qty: 30 1RF atorvastatin 40 mg tablet 40 mg PO HS Qty: 30 0RF Entresto 24-26 mg tablet 1 tab PO BID Qty: 60 0RF Referrals Follow up/Referrals: Provider,Referral, [Primary Care Provider] - See instructions Shaneka Arcos DPM [Staff Physician] - See instructions Activity Restrictions/Add. Instructions Additional Instructions/Restrictions: You were evaluated in the emergency department today. At this time, Dr. Arcos is going to manage you on an outpatient basis. Please follow-up in clinic with her. fishing tool supervisor your prescription for doxycycline provided to you by and take the full course as prescribed. fishing tool supervisor your prescription I have prescribed you for gentamicin and use it as prescribed. Return to the emergency department for new or worsening symptoms. Clinical Impressions Clinical Impression: Cellulitis of great toe of right foot Instructions Patient Instructions: DI for Wound Infection Discharge ED Provider: Elle Mcmillan General Adult HPI General Chief complaint: Wound/Laceration Stated complaint: DIABETIC INFECTION RT BIG TOE Time Seen by Provider: 09/11/23 13:20 Mode of Arrival: Ambulatory Source of Information: Patient Limitations: No Limitations Description of Symptoms (Recalled from ER Triage Doc. by RN): PT WITH OPEN AREA/BLISTER TO RIGHT GREAT TOE AFTER TOENAIL FELL OFF ABOUT 4 DAYS AGO. PT SEEN BY REFERENCE LIBRARIAN TODAY, XRAYS TAKEN AND PT STATES THEY SAID I HAVE INFECTION IN THE BONE History of Present Illness HPI narrative: This patient is a 48-year-old male with a history of gout, osteoarthritis, type 2 diabetes, hypertension, hyperlipidemia, CAD, obesity, and peripheral neuropathy presented to the emergency department for evaluation with concern for a wound to his right great toe. Patient reports that he was evaluated at diabetes clinic today in [place], where they ordered x-rays of his foot. They called him once he got back, and told him that he had osteomyelitis and need to be seen in the ER. He reports that his big toenail was loose and came off approximately 4 days ago. Prior to that, his toe was perfectly fine. Since then, he notes that his toes become more red, warm, and painful and he has had development of an ulcer on the toe. He has
--- NOTE | 2023-09-11 15:57 | PC.NURSE ---
DR MONAHAN OFFICE CALLED WITH FOLLOW UP VIOLA ON 09/17/23 @ 3:30 GIVING INFO TO PT BEFORE DISCHARGE
[2023-09-11 16:02] VITALS: BP 112/78; PULSE 78; RESP 20; TEMP 37.2; O2SAT 98
--- NOTE | 2023-09-11 16:13 | EXP.POD.CONS ---
History of Present Illness *Admission Date: 09/11/23 *Reason for visit:: Right hallux DFU *History of present illness: Patient is a 48-year-old uncontrolled diabetic who presented to the [facility] ED the for further evaluation of diabetic foot ulcer with possible osteomyelitis. Patient reports he was at today seeing his completion manager. His sugar is not good . Last HA1C in our system 01/31/2023 was 11.7%. His completion manager saw the foot wound and sent him to the [facility]. [facility] did x-rays and he received a call on his way home to go to the nearest ER for further evaluation for osteomyelitis. Patient reports wound to the tip of the toe has been there no more than a week. He reports that he had a hang toenail which he pulled and redness started after that several days ago. Denies N/V, F/C, SOB/CP. Sees [facility] cardiology and reports they recently did studies to check his circulation. Denies leg stents but reports stents to his heart, with collapse and multiple restenting procedures. Ex-smoker. [facility] Disclaimer: The information contained in this section may have been updated after the patient was seen, as this information can be updated by other users. Medical History Angina at rest ASCVD (arteriosclerotic cardiovascular disease) History of ASCVD Hyperlipidemia Hypertriglyceridemia Palpitations Primary hypertension Type 2 diabetes mellitus without complication Surgical History History of heart artery stent (~04/26/22) History of heart artery stent Social History Smoking Status: Former smoker alcohol intake: never substance use type: denies use current occupational status: employed (self-employed) Travel in the last 8 weeks: Inside the [place] Review of Systems Review of Systems Review of systems:: pertinent systems reviewed and negative unless documented below Constitutional Constitutional: Reports system reviewed and no additional complaints, except as documented Eyes Eyes: Reports system reviewed and no additional complaints, except as documented ENT Ears, Nose, Mouth, and Throat: Reports system reviewed and no additional complaints, except as documented *Cardiovascular Cardiovascular: Reports system reviewed and no additional complaints, except as documented, Reports acrocyanosis (b/l feet) and Reports pedal edema *Respiratory Respiratory: Reports system reviewed and no additional complaints, except as documented *Gastrointestinal Gastrointestinal: Reports system reviewed and no additional complaints, except as documented *Genitourinary Genitourinary: Reports system reviewed and no additional complaints, except as documented *Musculoskeletal Musculoskeletal: Reports system reviewed and no additional complaints, except as documented and Reports joint swelling (right toe) Integumentary/Breasts Skin/Breast: Reports skin ulcer and Reports wounds (R hallux ulcer) *Neurologic Neurologic: Reports paresthesias Psychiatric Psychiatric: Reports system reviewed and no additional complaints, except as documented Endocrine Endocrine: Reports system reviewed and no additional complaints, except as documented and Reports polydipsia Hematologic/Lymphatic Hematologic/Lymphatic: Reports system reviewed and no additional complaints, except as documented Allergic/Immunologic Allergic/Immunologic: Reports system reviewed and no additional complaints, except as documented Meds Home Medications and Allergies Home Medications Medication Instructions Recorded Confirmed Type aspirin 81 mg chewable tablet 1 tab PO DAILY Heart Health 03/05/23 07/16/23 History diclofenac sodium 1 % topical gel 2 g topical DAILY PRN Pain 03/05/23 07/16/23 History docusate sodium 100 mg tablet 100 mg PO DAILYP PRN Constipation 03/05/23 07/16/23 History (Stool Softener) dapagliflozin propanediol 10 mg 10 mg P
[2023-09-11 16:46] LABS: Erythrocyte Sedimentation Rate 16 mm/hr (0-15)
[2023-09-11 17:40] LABS: Reflex Lactic Add Lactic Reflex
== END 2023-09-11 16:04 | disposition home or self-care (01) ==
PROVIDERS: Emergency Provider Emergency Medicine
DX: E11.621 Type 2 diabetes mellitus with foot ulcer (principal); L97.519 Non-pressure chronic ulcer of other part of right foot with unspecified severity; L03.031 Cellulitis of right toe; I73.9 Peripheral vascular disease, unspecified; M19.071 Primary osteoarthritis, right ankle and foot; M19.072 Primary osteoarthritis, left ankle and foot; E11.65 Type 2 diabetes mellitus with hyperglycemia; Z79.4 Long term (current) use of insulin; E11.40 Type 2 diabetes mellitus with diabetic neuropathy, unspecified; E87.1 Hypo-osmolality and hyponatremia; I25.119 Atherosclerotic heart disease of native coronary artery with unspecified angina pectoris; I11.9 Hypertensive heart disease without heart failure; E78.5 Hyperlipidemia, unspecified; E66.9 Obesity, unspecified; Z87.891 Personal history of nicotine dependence
CPT/HCPCS: 73630; 80053; 83036; 83605; 85025; 85651; 86140; 87040; 96360; 99284

== ENCOUNTER → 2023-09-24 09:52 | Outpatient (CLI) | payer OTHER, SELFPAY ==
--- NOTE | 2023-09-24 09:56 | XR_ITS ---
FINAL REPORT CLINICAL HISTORY: Right foot pain COMPARISON: None FINDINGS: RIGHT FOOT: Three views of the right foot were obtained. There is no acute fracture or dislocation. There is moderate degenerative change of the 1st MTP. Hallux valgus deformity is noted. There are mild degenerative changes elsewhere. There is a small posterior calcaneal spur. There is no soft tissue abnormality. IMPRESSION: Mild and moderate degenerative changes without acute bony abnormality. Reviewed, Interpreted and Dictated by Mychal Berry III, MD Transcribed by Carmen Villasenor Authenticated and [facility]
--- NOTE | 2023-09-24 09:56 | XR_ITS ---
FINAL REPORT CLINICAL HISTORY: Left foot pain COMPARISON: None FINDINGS: Three views of the left foot were obtained. There is no acute fracture or dislocation. Mild degenerative change. Posterior calcaneal spur is noted. There is no soft tissue abnormality. IMPRESSION: Mild degenerative change without acute bony abnormality. Reviewed, Interpreted and Dictated by Mychal Berry III, MD Transcribed by Carmen Villasenor Authenticated and [facility]
== END ==
PROVIDERS: Visit Provider Podiatrist
DX: M79.671 Pain in right foot (principal); M79.672 Pain in left foot
CPT/HCPCS: 73630

== ENCOUNTER 2023-11-05 16:43 | Outpatient (CLI) | payer OTHER, SELFPAY | END 2023-11-05 23:59 | LOC: LAB.DROPOF 16:43 | PROVIDERS: PCP Nurse Practitioner; Visit Provider Nurse Practitioner | DX: Z51.89 Encounter for other specified aftercare (principal); S91.102A Unspecified open wound of left great toe without damage to nail, initial encounter; B96.89 Other specified bacterial agents as the cause of diseases classified elsewhere | CPT/HCPCS: 87070; 87205 ==

== ENCOUNTER 2023-11-15 07:49 | Day surgery (SDC) | payer OTHER, SELFPAY ==
[2023-11-15] VITALS (18 sets, daily range): BP systolic 99–165; BP diastolic 64–100; PULSE 65–80; RESP 17–20; TEMP 36.4; O2SAT 95–100; BMI 29.7
--- NOTE | 2023-11-15 | IR_ITS ---
APPROVED REPORT Patient Location: Outpatient Counter Helper: EREN Cordero RT (R) PROCEDURES Left heart catheterization Left ventriculogram Selective coronary angiogram Selective engagement of the left internal mammary artery with angiography Catheter placement in the left external iliac artery Left external iliac artery antegrade angiogram with unilateral runoff to the left foot INDICATION Coronary artery disease, History of coronary bypass surgery, History of coronary artery stents to the left main artery, Thaddeus claudication class V, Peripheral artery disease Informed consent was obtained prior to the procedure. COMPLICATIONS None Estimated Blood Loss: Less than10 mls TECHNIQUE One percent lidocaine used to anesthetize the right groin. The right femoral artery was accessed via the Seldinger technique and a 5 Luxembourgish sheath was placed in the right femoral artery. A JL 4, JR4 catheter were used to perform left heart catheterization, left ventriculogram selective coronary angiography as well as selective engagement of the left internal mammary artery. At the end the diagnostic angiogram the catheter was placed into the left common iliac artery and a bandage wire was advanced under fluoroscopic guidance. The catheter was advanced to the left external iliac artery where left external iliac artery antegrade angiography was performed with unilateral runoff to the left foot. At the end of the procedure the apparatus was removed the patient was transferred to the postop holding area in stable condition for sheath removal. ANGIOGRAPHIC RESULTS The left main artery Has a stent in the mid segment which extends distally and into the circumflex artery. The distal portion of the stent has 20 to 30% concentric in-stent restenosis. The left anterior descending artery Has an ostial 80% stenosis and then supplies a first diagonal artery which is moderate in size. The circumflex artery Is an ostial eccentric 30 to 40% stenosis with remaining vessel widely patent The right coronary artery Is dominant and the proximal smooth 30 to 40% stenosis immediately proximal to the stent which appears to be mostly a tortuous bend. The stent itself was widely patent with minimal in-stent restenosis. There is additional mid vessel tandem 40% stenoses in the mid portion of the right coronary artery. Distally a large posterior descending artery has a mid vessel 60 to 70% stenosis however the vessel is just at 2.25 mm in diameter The SINCLAIR ventriculogram reveals Preserved at 55% The left ventricular end-diastolic pressure 10 mmHg DANIELS widely patent LAD Left external iliac arteries widely patent as is the left common femoral artery and left profunda femoris artery. The left superficial femoral artery and left popliteal artery is widely patent. There is three-vessel runoff below the knee and into the ankle IMPRESSION Coronary artery disease as described above Preserved ejection fraction Patent DANIELS to LAD Severe disease and a 2.25 mm posterior descending artery which is best managed medically at this time and less angina becomes recalcitrant to medical therapy and then stenting could proceed Lower extremity ulcers on the left foot which likely stems from venous insufficiency PLAN 1. Aggressive medical management for coronary artery disease 2. Aggressive treatment for venous insufficiency 3. Continued risk factor modification 4. Should patient's angina pectoris become recalcitrant to medical management I could bring him back and stent the posterior descending artery. Because of the relatively small caliber of the vessel I believe medical management should be exhausted before proceeding with stenting Electronically signed by : Van Clemons MD 11/15/2023 12:11:41
[2023-11-15 08:31] LABS: Basophils # 0.1 K/mm3 (0-0.2); Basophils % 1.3 % (0.1-2.0); Eosinophils # 0.1 K/mm3 (0.0-0.4); Hemoglobin 16.2 g/dL (14.1-18.0); Lymphocytes # 2.1 K/mm3 (0.7-4.5); Lymphocytes % 21.7 % (10-50); Mean Corpuscular HGB Conc 33.7 g/dL (31.8-35.4); Mean Corpuscular Hemoglobin 28.3 pg (27.0-31.2); Mean Corpuscular Volume 84.2 fl (80-94); Mean Platelet Volume 8.1 fl (7.4-10.4); Monocytes # 0.6 K/mm3 (0.1-1.0); Monocytes % 6.3 % (1.7-9.3); Neutrophils # 6.9 K/mm3 (1.8-7.8); Neutrophils % 69.7 % (37.0-80.0); Platelet Count 366 K/mm3 (142-424); Red Cell Distribution Width 13.5 % (11.5-17.5); White Blood Count 9.9 K/mm3 (4.8-10.8)
[2023-11-15 08:44] LABS: Anion Gap 16.9 mEq/L (5-15); Blood Urea Nitrogen 21 mg/dl (9-20); Calcium 9.2 mg/dl (8.4-10.2); Carbon Dioxide 31 mmol/L (22.0-30.0); Chloride 94 mmol/L (98-107); Creatinine Clearance Estimated 97 mL/min (50-200); Estimated Glomerular Filt Rate 59 ml/min (>60); GFR (African American) 71 ML/MIN (>60); Glucose 271 mg/dl (74-100); Potassium 3.9 mmoL/L (3.5-5.1); Sodium 138 mmol/L (136-145)
[2023-11-15] MEDS: LIDOCAINE 1% 10ML MDV 20 ML IJ (09:55)
[2023-11-15] MEDS: diphenhydrAMINE 50MG/ML VIAL 50 MG IV (09:55)
[2023-11-15] MEDS: 0.9 % SODIUM CHLORIDE 500 ML 25 ML IV (09:56)
[2023-11-15] MEDS: HEPARIN 1,000 UNITS/500ML NS (CATH LAB) 3000 UNIT IV (09:56)
[2023-11-15] MEDS: MIDAZOLAM HCL 1MG/1ML 5ML VIAL 1 MG IV (10:34)
[2023-11-15] MEDS: FENTANYL 100MCG/2ML VIAL 50 MCG IV (10:35)
[2023-11-15] MEDS: IOPAMIDOL-250 (51%) 100ML BOT 40 ML IV (12:43)
[2023-11-15] MEDS: IOPAMIDOL-370 (76%);100ML BOTTLE 50 ML IV (12:43)
== END 2023-11-15 14:15 | disposition home or self-care (01) ==
PROVIDERS: Visit Provider Internal Medicine
DX: E11.621 Type 2 diabetes mellitus with foot ulcer (principal); E78.5 Hyperlipidemia, unspecified; Z79.4 Long term (current) use of insulin; Z95.1 Presence of aortocoronary bypass graft; Z95.5 Presence of coronary angioplasty implant and graft; I25.118 Atherosclerotic heart disease of native coronary artery with other forms of angina pectoris; T82.855A Stenosis of coronary artery stent, initial encounter; I25.810 Atherosclerosis of coronary artery bypass graft(s) without angina pectoris; L97.521 Non-pressure chronic ulcer of other part of left foot limited to breakdown of skin; I70.245 Atherosclerosis of native arteries of left leg with ulceration of other part of foot; Y83.1 Surgical operation with implant of artificial internal device as the cause of abnormal reaction of the patient, or of later complication, without mention of misadventure at the time of the procedure; I77.1 Stricture of artery; I10 Essential (primary) hypertension
CPT/HCPCS: 36246; 75710; 80048; 85025; 93459; 99152; C1725; C1769; C1894; J1644; Q9966; Q9967

== ENCOUNTER 2024-01-09 07:32 | Outpatient (CLI) | payer OTHER, SELFPAY ==
--- NOTE | 2024-01-09 07:37 | CT_ITS ---
FINAL REPORT TECHNIQUE: Thin section axial CT images with coronal and sagittal reformats were performed. This study was performed with techniques to keep radiation doses as low as reasonably achievable (ALARA). Individualized dose reduction techniques using automated exposure control or adjustment of mA and/or kV according to the patient''s size were employed. CLINICAL HISTORY: left heel pain FINDINGS: Moderate degenerative changes are present. There are subchondral cysts in the distal lateral tibia and distal medial fibula. Several soft tissue calcifications are identified. There is lateral soft tissue swelling. There is probable peroneus longus tenosynovitis. IMPRESSION: Degenerative changes as detailed above. Probable peroneal longus tenosynovitis. If indicated, MRI could further evaluate. Reviewed, Interpreted and Dictated by Mychal Berry III, MD Transcribed by Una Pond Authenticated and [facility]
== END 2024-01-09 23:59 ==
LOC: RAD 07:32
PROVIDERS: Visit Provider Physician Assistant
DX: M79.672 Pain in left foot (principal)
CPT/HCPCS: 73700